=== PATIENT | male | born 1970 | race Two or more races ===

== ENCOUNTER 2020-09-09 10:52 | Observation (INO) | payer BC ==
[2020-09-09] MEDS ORDERED: ACETAMINOPHEN 500 MG TABLET (FP) ONE (11:29)
[2020-09-09] MEDS ORDERED: ACETAMINOPHEN 500 MG TABLET (FP) PO ONE (11:30)
[2020-09-09 11:36] LABS: BASO % 0.5 % (0-2.0); EOS % 0.1 % (0-4.5); HEMATOCRIT 47.7 % (35.4-49); HEMOGLOBIN 15.6 GM/dL (11.7-16.9); MCH 28.3 pg (25.7-33.7); MCHC 32.6 g/dl (32.0-35.9); MEAN CELL VOLUME 86.7 fl (80-96); MEAN PLT VOLUME 9.8 fl (7.5-11.1); MONO % 6.1 % (3.8-10.2); NEUT % 74.3 % (42.8-82.8); PLATELET COUNT 219 10^3/uL (134-434); RDW 13.3 % (11.9-15.9); WHITE BLOOD COUNT 8.7 K/mm3 (4.0-10.0)
[2020-09-09] MEDS ORDERED: SODIUM CHLORIDE 0.9% 1000 ML INFUS.BAG IV ONE (11:45)
[2020-09-09 11:54] LABS: CHLORIDE 108 mmol/L (98-107); SODIUM 141 mmol/L (136-145)
[2020-09-09 11:56] LABS: CALCIUM 9.5 mg/dL (8.5-10.1)
[2020-09-09 11:57] LABS: ALBUMIN 4.5 g/dl (3.4-5.0); ANION GAP 12 MMOL/L (8-16); BLOOD UREA NITROGEN 20.1 mg/dL (7-18); CO2 21 mmol/L (21-32); GLUCOSE,RANDOM 92 mg/dL (74-106)
[2020-09-09 12:00] LABS: CREATININE 1.1 mg/dL (0.55-1.3); SGOT/AST 60 U/L (15-37); SGPT/ALT 38 U/L (13-61)
[2020-09-09 12:01] LABS: BILIRUBIN,TOTAL 0.7 mg/dL (0.2-1)
[2020-09-09 12:02] LABS: TOT PROT 7.9 g/dl (6.4-8.2)
[2020-09-09 12:03] LABS: ALK PHOS 54 U/L (45-117)
[2020-09-09] MEDS ORDERED: ASPIRIN 81 MG CHEWABLE TABLETS PO ONE (12:58)
[2020-09-09] MEDS ORDERED: ASPIRIN 81 MG CHEWABLE TABLETS ONE (13:18)
[2020-09-09] MEDS ORDERED: ACETAMINOPHEN 325 MG TABLET (FP) PO PRN (13:36)
[2020-09-09 15:11] LABS: CHOLESTEROL 219 mg/dL (50-200); TRIGLYCERIDES 78 mg/dL (0-150)
[2020-09-09 15:12] LABS: LDL CHOLESTEROL (ONLY SJRH) 135 mg/dL (5-100)
[2020-09-09 15:14] LABS: HDL CHOLESTEROL 61 mg/dL (40-60)
[2020-09-09] MEDS ORDERED: MAG HYDROX/AL HYDROX/SIMETH 30 ML UNIT-DOSE CUP PO PRN (15:53)
[2020-09-09] MEDS ORDERED: PANTOPRAZOLE SODIUM 40 MG/100 ML BAG IVPB ONE (16:10)
[2020-09-09] MEDS: PANTOPRAZOLE SODIUM 40 MG VIAL IVPUSH SCH (16:13)
[2020-09-09 18:30] VITALS: BMI 35.2
[2020-09-09] MEDS ORDERED: ATORVASTATIN CA 20 MG TABLET (FP) PO SCH (22:00)
[2020-09-10 08:15] LABS: HEMATOCRIT 44.9 % (35.4-49); HEMOGLOBIN 14.6 GM/dL (11.7-16.9); MCH 28.5 pg (25.7-33.7); MCHC 32.5 g/dl (32.0-35.9); MEAN CELL VOLUME 87.7 fl (80-96); MEAN PLT VOLUME 9.9 fl (7.5-11.1); PLATELET COUNT 192 10^3/uL (134-434); RBC 5.12 M/mm3 (4.00-5.60); RDW 13.5 % (11.9-15.9); WHITE BLOOD COUNT 8.9 K/mm3 (4.0-10.0)
[2020-09-10 08:55] LABS: ALBUMIN 3.8 g/dl (3.4-5.0); BLOOD UREA NITROGEN 14.1 mg/dL (7-18); CALCIUM 8.5 mg/dL (8.5-10.1); MAGNESIUM 2.3 mg/dL (1.8-2.4)
[2020-09-10 08:58] LABS: CREATININE 0.9 mg/dL (0.55-1.3); PHOSPHOROUS 3.8 mg/dL (2.5-4.9)
[2020-09-10 09:00] LABS: BILIRUBIN,TOTAL 0.8 mg/dL (0.2-1)
[2020-09-10] MEDS ORDERED: ASPIRIN COATED 81 MG TABLET.EC PO SCH (10:00)
[2020-09-10] MEDS ORDERED: ENOXAPARIN NA (PORCINE) 40 MG/0.4 ML DISP.SYRIN SQ SCH (10:00)
[2020-09-10] MEDS: PANTOPRAZOLE SODIUM 40 MG VIAL IVPUSH SCH (10:06)
[2020-09-10] MEDS ORDERED: BISACODYL 5 MG TABLET.DR (FP) PO ONE (11:31)
[2020-09-10 14:46] VITALS: BP 132/69; PULSE 97; TEMP 98.7
[2020-09-11] MEDS ORDERED: LISINOPRIL 5 MG TABLET PO SCH (10:00)
== END 2020-09-10 17:08 | disposition home or self-care (01) ==
LOC: JER 10:52 → JERBED 12:57 → INTOOBSV 12:57 → UNDOADMOB 12:57 → JERBED 15:54 → J4W 18:03
PROVIDERS: ATTEND Nurse Practitioner Family
PROC: 3E033GC Introduction of Other Therapeutic Substance into Peripheral Vein, Percutaneous Approach (ICD-10-PCS; principal; 2020-09-09)
PROC: 3E0337Z Introduction of Electrolytic and Water Balance Substance into Peripheral Vein, Percutaneous Approach (ICD-10-PCS; 2020-09-09)
DX: E66.9 Obesity, unspecified (principal); Z68.35 Body mass index [BMI] 35.0-35.9, adult; I10 Essential (primary) hypertension; E78.5 Hyperlipidemia, unspecified; Z98.84 Bariatric surgery status; G47.30 Sleep apnea, unspecified; F41.8 Other specified anxiety disorders; N52.9 Male erectile dysfunction, unspecified; R79.89 Other specified abnormal findings of blood chemistry
CPT/HCPCS: 36415; 71046-TC-FY; 76705-TC; 80053; 80061; 83036; 83721; 83735; 84100; 84443; 84484; 85025; 85027; 85379; 93005; 93010; 99285-25; C9803; G0378; U0003; U0005